=== PATIENT | female | born 1950 | race Caucasian/White ===

== ENCOUNTER 2017-06-17 14:22 | Emergency (ER) | payer OTHER ==
[~2017-06-17] VITALS: Ht 172.7 cm; Wt 77.1 kg
[2017-06-17 15:52] LABS: HEMATOCRIT 39.6 % (34.6-47.8); HEMOGLOBIN 13.2 g/dL (11.7-16.4); WHITE BLOOD COUNT 5.4 x10^3/uL (3.4-10)
[2017-06-17 16:00] LABS: BLOOD UREA NITROGEN 9 mg/dL (7-18)
[2017-06-17] MEDS ORDERED: SODIUM CHLORIDE 0.9% 1,000ML IVBOLUS ONE (16:00)
[2017-06-17 16:04] LABS: ASPARTATE AMINO TRANSFERASE 16 U/L (15-37)
[2017-06-17] MEDS ORDERED: SODIUM CHLORIDE FLUSH 10ML SYR IVF ONE (16:30)
[2017-06-17 17:13] VITALS: BP 144/83
== END 2017-06-17 17:17 | disposition home or self-care (01) ==
LOC: ED 17:11
DX: K92.1 Melena (principal)
CPT/HCPCS: 36415; 80053; 83690; 85025; 85610; 96360; 99284; J7030